=== PATIENT | male | born 1965 | race Caucasian/White ===

== ENCOUNTER 2019-08-07 08:29 | Inpatient (IN) | payer BC, OTHER ==
[~2019-08-07] VITALS: Ht 185.4 cm; Wt 127.9 kg
[2019-08-07] VITALS (38 sets, daily range): BP systolic 129–177; BP diastolic 98–152
[~2019-08-07 08:29] MED LIST: CLONIDINE HCL0.2 MG PO; GABAPENTIN300 MG PO; LASIX40 MG PO; LISINOPRIL-HCT1 EAC1 PO; METOLAZONE5 MG PO; METOPROLOL TART50 MG PO; POTASSIUM CHLO10 ME1 PO
[2019-08-07] MEDS ORDERED: DILTIAZEM HCL 5 MG/ML 5 ML VIAL IV STA ×2 (08:45→11:26)
[2019-08-07] MEDS ORDERED: DILTIAZEM HCL VIAL 5 ML ONE (08:47)
--- NOTE | 2019-08-07 08:57 | NUR ---
second dose of cardizem 10mg ivp per Dr. Ramey hr-130 bp-144/115
[2019-08-07] MEDS ORDERED: CLONIDINE HCL0.3 MG PO (09:20)
[2019-08-07] MEDS ORDERED: ALPRAZOLAM1 MG PO (09:20)
[2019-08-07 09:35] LABS: BASOPHILS # (AUTO) 0.1 (0.0-0.1); BASOPHILS % 0.4 % (0.0-1.0); EOSINOPHILS # (AUTO) 0.1 (0.0-0.4); EOSINOPHILS % 1.2 % (0.0-6.0); HEMATOCRIT 52.1 % (38.2-49.6); HEMOGLOBIN 17.7 g/dL (14.0-18.0); LYMPHOCYTES # (AUTO) 2.4 (1.0-3.2); LYMPHOCYTES % 19.9 % (18.0-39.1); MEAN CORPUSCULAR HEMOGLOBIN 29.5 pg (28-32); MEAN CORPUSCULAR VOLUME 86.7 fL (81-99); MONOCYTES # (AUTO) 1.4 (0.2-0.8); MONOCYTES % 11.4 % (4.4-11.3); NEUTROPHILS % 66.7 % (38.7-80.0); PLATELET COUNT 312 x10e3/uL (140-360); RED BLOOD COUNT 6.01 x10e6/uL (4.3-5.7); RED CELL DISTRIBUTION WIDTH 13.4 % (11.7-14.4)
[2019-08-07] MEDS: CEFEPIME 1GM/NS 0.9% 50 ML 50 ML IV SCH (09:44)
[2019-08-07] MEDS ORDERED: VANCOMYCIN 1GM/NS 250 ML 250 ML IV ONE (10:00)
[2019-08-07 10:04] LABS: ALANINE AMINOTRANSFERASE 29 IU/L (0-55); ALBUMIN/GLOBULIN RATIO 1.3 (0.8-2.0); ALKALINE PHOSPHATASE 69 IU/L (40-150); ANION GAP 12.7 mmol/L (8-16); BLOOD UREA NITROGEN 13 mg/dL (7-26); BUN/CREATININE RATIO 11 (6-25); CALCIUM 9.6 mg/dL (8.4-10.2); CARBON DIOXIDE 33 mmol/L (22-29); CHLORIDE 96 mmol/L (98-107); CREATINE KINASE 107 IU/L (30-200); CREATININE, SERUM 1.15 mg/dL (0.72-1.25); EST GLOMERULAR FILTRATION RATE > 60 ML/MIN (60-); GLUCOSE 132 mg/dL (74-118); SODIUM 139 mmol/L (136-145)
[2019-08-07 10:11] LABS: POTASSIUM 2.7 mmol/L (3.5-5.1)
[2019-08-07] MEDS ORDERED: POTASSIUM CHLORIDE 20 MEQ TAB CR PO ONE ×2 (10:35→11:35)
--- NOTE | 2019-08-07 11:22 | Diagnostic Imaging Report ---
EXAMINATION: CHEST SINGLE (PORTABLE) INDICATION: Atrial fibrillation, shortness of breath COMPARISON: Chest radiograph 09/19/2014 FINDINGS: LINES/TUBES:EKG leads overlie the chest. LUNGS:The lungs are moderately inflated. There is perihilar fullness and indistinctness of the pulmonary vasculature. Mild bibasilar patchy opacities. PLEURA:No pleural effusion or pneumothorax. MEDIASTINUM:Cardiomediastinal silhouette is mildly enlarged. BONES/SOFT TISSUES:No acute osseous injury. ABDOMEN:No free air under the diaphragm. IMPRESSION: Cardiomegaly and pulmonary interstitial edema. Mild bibasilar patchy opacities, most likely subsegmental atelectasis. Signed by: Dayana Archer MD on 08/07/2019 11:19 AM
--- OUTSIDE RECORDS SUMMARY | 2019-08-07 12:19 | XMS REPORT ---
Author Author [facility] Address Unknown Phone Unavailable Care Team Providers Care Seasonal Delivery Driver Name Role Phone TRAVIS ARMSTRONG Unavailable Unavailable Problems This patient has no known problems. Allergies, Adverse Reactions, Alerts This patient has no known allergies or adverse reactions. Medications This patient has no known medications. Results Test Description Test Time Test Comments Text Results Atomic Results Result Comments CHEST SINGLE (PORTABLE) 2019-08-07 11:18:00 [facility] [address] [place] [address] Patient Name: FIONA MAURO MR #: [id number] : 1965 Age/Sex: 54/M Req #: [id number] Adm Physician: Ordered by: TRAVIS ARMSTRONG DO Report #: [id number] Location: ER Room/Bed: Procedure: [id number] DX/CHEST SINGLE (PORTABLE) Exam Date: 08/07/19 Exam Time: 1015 REPORT STATUS: Signed EXAMINATION: CHEST SINGLE (PORTABLE) SATYA CATION: Atrial fibrillation, shortness of breath COMPARISON: Chest radiograph 09/19/2014 FINDINGS: LINES/TUBES:EKG leads overlie the chest. LUNGS:The lungs are moderately inflated. There is perihilar fullness and indistinctness of the pulmonary vasculature. Mild bibasilar patchy opacities. PLEURA:No pleural effusion or pneumothorax. MEDIASTINUM:Cardiomediastinal silhouette is mildly enlarged. BONES/SOFT TISSUES:No acute osseous injury. ABDOMEN:No free air under the diaphragm. IMPRESSION: Cardiomegaly and pulmonary interstitial edema. Mild bibasilar patchy opacities, most likely subsegmental atelectasis. Signed by: Armand Archer MD on 08/07/2019 11:19 AM Dictated By: ARMAND ARCHER MD 111 Transcribed By: CLAIRE on 08/07/191118 COPY TO: TRAVIS ARMSTRONG, DO
--- NOTE | 2019-08-07 13:10 | NUR ---
RCD PT FROM ER BY WHEEL CHAIR PT IS ALERT AND ORIENTED RESTING ON BED
--- NOTE | 2019-08-07 13:15 | NUR ---
BP 164/126 AND HR [address] VALDES TO NOTIFY THAT
--- NOTE | 2019-08-07 13:30 | NUR ---
NOTIFIED THE CHARGE NURSE REGARDING THE CONDITION OF THE PT AND NO DR ANSWERING GARDENIA CALL
--- NOTE | 2019-08-07 13:33 | NUR ---
PAGED DR VILLANUEVA TO NOTIFY THE HR
--- NOTE | 2019-08-07 14:20 | NUR ---
DR VALDES RETURNED THE CALL HE ASKED WHY THE PT IN FLOOR GOT THE ORDER TO TRANSFER ICU
--- NOTE | 2019-08-07 14:21 | NUR ---
LANE WHYTE RETURNED THE CALL AND GOT THE ORDER TO TRANSFER TO ICU AND START CARDIZEM DRIP
[2019-08-07] MEDS ORDERED: DILTIAZEM HCL 125 ML IV STA (14:25)
--- NOTE | 2019-08-07 14:26 | NUR ---
PT TRANSFERRED TO ICU IN SAFE CONDITION
[2019-08-07] MEDS ORDERED: DILTIAZEM HCL 125 ML IV SCH (14:30)
[2019-08-07] MEDS: DILTIAZEM HCL 125 ML IV SCH ×5 (15:00→22:00)
[2019-08-07] MEDS ORDERED: ENOXAPARIN SOD INJ 60 MG/0.6 ML SYR SC SCH (17:00)
[2019-08-07 17:19] LABS: MAGNESIUM 1.7 MG/DL (1.3-2.1)
[2019-08-07 17:30] LABS: ANION GAP 13.3 mmol/L (8-16); BLOOD UREA NITROGEN 13 mg/dL (7-26); BUN/CREATININE RATIO 13 (6-25); CALCIUM 9.4 mg/dL (8.4-10.2); CARBON DIOXIDE 31 mmol/L (22-29); CHLORIDE 99 mmol/L (98-107); CREATININE, SERUM 1.03 mg/dL (0.72-1.25); EST GLOMERULAR FILTRATION RATE > 60 ML/MIN (60-); GLUCOSE 122 mg/dL (74-118); POTASSIUM 3.3 mmol/L (3.5-5.1); SODIUM 140 mmol/L (136-145)
[2019-08-07 17:41] LABS: FREE THYROXINE INDEX 3.4159 (1.4-3.8); THYROID STIMULATING HORMONE 0.356 uIU/mL (0.350-4.940)
[2019-08-07] MEDS ORDERED: POTASSIUM CHLORIDE 20 MEQ TAB CR PO SCH (18:30)
[2019-08-07] MEDS ORDERED: POTASSIUM CHLORIDE 20MEQ/100ML 100 ML IV ONE (18:30)
[2019-08-07] MEDS ORDERED: POTASSIUM CHLORIDE 20 MEQ TAB CR PO NR (20:53)
--- NOTE | 2019-08-07 22:00 | NUR ---
Dr. Prieto notified of high BP, current VS, and on cardizem gtt. New orders received to restart home clonidine med.
[2019-08-07] MEDS ORDERED: CLONIDINE HCL 0.1 MG TAB PO SCH (22:15)
--- NOTE | 2019-08-07 23:52 | Consultation ---
DATE OF CONSULTATION: 08/07/2019 Pulmonary Critical Care Medicine Consult REASON FOR REFERRAL: Critical care. HISTORY OF PRESENT ILLNESS: Mr. Donahue is a pleasant 54-year-old gentleman, who has critical cardiac arrhythmia. The patient presented with some fast and pounding heart rate. The patient was at Dr. Bauman's office, his PCP. The patient had a little bit of feeling that he may pass out. The patient was found to have atrial fibrillation with rapid ventricular rate. 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 The patient stopped using his CPAP as he was worried that this caused an infection that led him to have GBS syndrome. The patient denies excess caffeine or other inciting factors. He is having swelling to his legs that is increasing, 3+ now. PAST MEDICAL HISTORY: Obstructive sleep apnea, not on treatment recently; hypertension; Guillain-Bowen syndrome, Ybarra Rene variant; cranial nerve palsy in 2014. MEDICATIONS: Medication list reviewed per the chart record. Alprazolam, clonidine, Lasix, potassium chloride. ALLERGIES: LABETALOL. SOCIAL HISTORY: No smoking. No drinking. No drugs. 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 Most of his life, he is in [place] and moved to [facility] in 1997. FAMILY HISTORY: Noncontributory to this syndrome. REVIEW OF SYSTEMS: GENERAL: No weight changes. OPHTHALMOLOGIC: No floaters. ENT: No mouth bleeding. ENDOCRINE: No known thyroid disease. PULMONARY: No hemoptysis. CARDIOVASCULAR: No heart attacks. GI: No diarrhea. : No blood in urine. MUSCULOSKELETAL: Moderate arthritis only. NEUROLOGIC: No seizures. PSYCHIATRIC: No depression. PHYSICAL EXAMINATION: VITAL SIGNS: Afebrile, vital signs noted, reviewed per the chart record. Intermittently go back in rapid rate. Now on Cardizem drip. HEENT: Normocephalic and atraumatic. NECK: Supple. Throat midline. LUNGS: Bilateral air entry, decreased at bases, limited. CARDIOVASCULAR: S1 and S2. No murmurs, rubs, or gallops. ABDOMEN: Soft and nontender. EXTREMITIES: No clubbing. No cyanosis. There is 3+ edema. INTEGUMENT: No rash except for the redness and erythema diffusely on his lower extremities, no purpura. GENERAL: He is in bed, talking. LABORATORY DATA: White count 12, hematocrit 52, platelets 312. Potassium was 2.7, , creatinine 1.1. Bicarbonate was 33. Albumin 4.0. TFTs already came back negative. Chest x-ray consistent with edema. IMPRESSION AND PLAN: 1. Pulmonary edema, appears cardiac. 2. Congestive heart failure, under evaluation, not otherwise specified. 3. History of abnormal pulmonary artery caliber on chest radiography, possible pulmonary hypertension. 4. Chronic obstructive sleep apnea, not on treatment. 5. Obesity. 6. History of Guillain-Bowen syndrome, Ybarra Rene variant. 7. Hypertension. 8. Critical hypokalemia. 9. Mild polycythemia, resolved. TFTs were just checked. Correct potassium and magnesium levels. Continue Cardizem drip. The patient may need updated echocardiogram to assess his heart and to decide best treatment for atrial fibrillation. Blood thinners are also reasonable. Thank you very much, Dr. Bauman, for this consult. Please call for questions. MD DUSTIN Gao/ROXI /[id number]
[2019-08-08] VITALS (80 sets, daily range): BP systolic 77–163; BP diastolic 25–133
[2019-08-08 05:38] LABS: BASOPHILS # (AUTO) 0.1 (0.0-0.1); BASOPHILS % 0.4 % (0.0-1.0); EOSINOPHILS # (AUTO) 0.1 (0.0-0.4); EOSINOPHILS % 0.7 % (0.0-6.0); HEMATOCRIT 46.3 % (38.2-49.6); HEMOGLOBIN 15.2 g/dL (14.0-18.0); LYMPHOCYTES # (AUTO) 1.9 (1.0-3.2); LYMPHOCYTES % 14.1 % (18.0-39.1); MEAN CORPUSCULAR HEMOGLOBIN 28.7 pg (28-32); MEAN CORPUSCULAR HGB CONC 32.8 g/dL (31-35); MEAN CORPUSCULAR VOLUME 87.5 fL (81-99); MONOCYTES # (AUTO) 1.6 (0.2-0.8); MONOCYTES % 11.8 % (4.4-11.3); NEUTROPHILS % 72.6 % (38.7-80.0); PLATELET COUNT 287 x10e3/uL (140-360); RED BLOOD COUNT 5.29 x10e6/uL (4.3-5.7); RED CELL DISTRIBUTION WIDTH 13.6 % (11.7-14.4)
[2019-08-08 05:58] LABS: ANION GAP 9.9 mmol/L (8-16); BLOOD UREA NITROGEN 14 mg/dL (7-26); BUN/CREATININE RATIO 13 (6-25); CARBON DIOXIDE 30 mmol/L (22-29); CHLORIDE 102 mmol/L (98-107); CREATININE, SERUM 1.06 mg/dL (0.72-1.25); EST GLOMERULAR FILTRATION RATE > 60 ML/MIN (60-); GLUCOSE 158 mg/dL (74-118); MAGNESIUM 1.7 MG/DL (1.3-2.1); PHOSPHORUS 2.9 MG/DL (2.3-4.7); SODIUM 139 mmol/L (136-145)
[2019-08-08 06:00] LABS: POTASSIUM 2.9 mmol/L (3.5-5.1)
[2019-08-08 06:17] LABS: INR 1.12; PROTHROMBIN TIME 15.1 seconds (11.9-14.5)
--- NOTE | 2019-08-08 06:20 | NUR ---
Dr. Bauman notified of critical potassium. aware of PRN order of potassium and scheduled dose of potassium at 0900. stated no further orders needed.
[2019-08-08] MEDS: POTASSIUM CHLORIDE 20 MEQ TAB CR PO PRN (06:24)
[2019-08-08] MEDS: DILTIAZEM HCL 125 ML IV SCH ×2 (07:05→09:30)
[2019-08-08] MEDS: PANTOPRAZOLE SOD 40 MG TABEC PO SCH ×3 (08:08→18:41)
[2019-08-08] MEDS: FUROSEMIDE INJ 10 MG/ML 4 ML VIAL IV SCH ×2 (08:09→20:51)
[2019-08-08] MEDS: POTASSIUM CHLORIDE 20 MEQ TAB CR PO SCH (08:10)
[2019-08-08] MEDS: MAGNESIUM OXIDE 400 MG TAB PO SCH (08:11)
[2019-08-08] MEDS: METOPROLOL TARTRATE 50 MG TAB PO SCH ×2 (08:30→18:00)
[2019-08-08] MEDS ORDERED: SODIUM CHLORIDE 0.9% 250ML 250 ML ONE (08:36)
[2019-08-08] MEDS ORDERED: CLONIDINE HCL 0.3 MG TAB PO SCH (09:00)
--- NOTE | 2019-08-08 09:14 | Diagnostic Imaging Report ---
EXAM: CHEST SINGLE (PORTABLE) INDICATION: CHF COMPARISON: None IMPRESSION: Lines and hardware: None Heart: Stable cardiomegaly. Lungs and pleura: No focal airspace consolidation. Pulmonary interstitial edema with probable small layering pleural effusions. No pneumothorax. Bones: No acute abnormality. Signed by: Duncan Lozano MD on 08/08/2019 9:11 AM
[2019-08-08] MEDS ORDERED: METOPROLOL TARTRATE 50 MG TAB ONE (09:20)
[2019-08-08] MEDS: ENOXAPARIN SODIUM INJ 100 MG/ML SYR SC SCH ×2 (09:30→20:53)
[2019-08-08] MEDS: CEFEPIME 1GM/NS 0.9% 50 ML 50 ML IV SCH (09:30)
[2019-08-08] MEDS ORDERED: ONDANSETRON HCL INJ 2MG/ML 2ML 2 MG/ML VIAL ONE (10:45)
[2019-08-08] MEDS ORDERED: SODIUM CHLORIDE 0.9% 250ML 250 ML IV SCH (11:45)
--- NOTE | 2019-08-08 11:51 | NUR ---
Pulmonary Critical Care Medicine DATE 08/08/2019 SUBJECTIVE: patient with 10 beats WCT cardizem drip ongoing, was 15 mg / hr. transitioning to PO medications still with edema he agrees to try cpap again REVIEW OF SYSTEMS: NO seizures, no rash PHYSICAL EXAMINATION: VITAL SIGNS: vital signs noted, reviewed per the chart record. GENERAL: calm, ok but got very dizzy once today HEENT: Normocephalic and atraumatic. NECK: Supple. Throat midline. LUNGS: Bilateral air entry, decreased at bases CARDIOVASCULAR: S1 and S2. No murmurs, rubs, or gallops. ABDOMEN: Soft and nontender. EXTREMITIES: No clubbing. No cyanosis. 3+ edema. INTEGUMENT: leg erythema to lower extremities, no purpura. LABORATORY DATA: k 2.9, hco3 30, cr 1.06. wbc 14, hct 46, plt 287. CXR edema again IMPRESSION AND PLAN: 1. Pulmonary edema, cardiac. 2. Congestive heart failure, not otherwise specified. 3. Enlarged pulmonary artery caliber on chest radiography, possible pulmonary hypertension. 4. Chronic obstructive sleep apnea, not on treatment. 5. Obesity. 6. History of Guillain-[place] syndrome, Ybarra Rene variant. 7. Hypertension. 8. Critical hypokalemia. 9. Mild polycythemia, resolved. dc cardizem drip, start beta blockers follow with cardiology echocardiogram ordered anticoagulation for the interim replete more k, follow mg patient agrees to CPAP re-trial Thank you very much, Dr. Bauman, for this consult. Please call for questions.
--- NOTE | 2019-08-08 12:45 | NUR ---
Nutrition Screen Note RD Recommendation for Physician: - Continue current diet Plan of Care: RD following, monitoring for tolerance and adequacy Nutrition reason for involvement: Nutrition Risk Trigger Primary Diagnose(s): atrial fibrillation PMH: HTN, Guillain-[place] syndrome, cranial nerve palsy Ht: 73 in Wt: 303.56 lb BMI: 40 kg/m2 IBW: [address] Assessment: (08/07) 54 YOM admitted for a-fib, seen today per MST screen. Pt reports good appetite and po intake. Pt denies wt loss, reports "dry weight" of 275#- weight gain likely due to fluid shifts as pt has +3 BLE edema currently. Pt denies any N/V/C/D. Pt reports that he does not cook with salt, however that he dines out and eats foods made/prepackaged with higher sodium content. Pt diaphoretic and feeling very dizzy at time of visit, diet education not appropriate at this time. Chart reviewed. Labs and meds reviewed, K replaced. Will continue to monitor. Current Diet: Cardiac Malnutrition Evaluation (08/08/19) The patient does not meet criteria for a specified degree of malnutrition at this time. Will re-evaluate at follow-up as appropriate. Energy intake: does not meet criteria, good intake reported Weight loss: none reported, UBW/"dry wt" of 275# Fat loss: none, chest well developed Muscle loss: none, shoulder round Supporting Evidence: Fluid accumulation: +3 BLE edema Functional Status: not assessed Diet Education Needs Assessment: Diet education not indicated, pt not appropriate at this time. Diet tolerance: tolerating po Nutrition Care Level: Low Signed: Ronda Ruiz RD, LD, [facility]
[2019-08-08] MEDS ORDERED: NOREPINEPHRINE 8 MG/D5W 250 ML 250 ML ONE (13:21)
[2019-08-08 15:24] LABS: CALCIUM 8.7 mg/dL (8.4-10.2); CREATININE, SERUM 1.49 mg/dL (0.72-1.25)
[2019-08-08] MEDS: NOREPINEPHRINE INJ 4MG/4ML 8 MG in DEXTROSE 5% 250ML 250 ML IV SCH (18:45)
--- NOTE | 2019-08-08 19:00 | NUR ---
nursing report given to Heather SERRA
--- NOTE | 2019-08-08 19:59 | NUR ---
new medication po metoprolol 50mg given with 9am medications(clonidine .3mg po not new med for pt also given). cardizem gtt stopped when po bp medications given at 0900am. bp dropped significantly. pt became symptomatic of low blood pressure as his bp has been 150-160/90-110 in icu. diaphoretic, pale, cool, lightheadedness. pt supine. [id number]. 2Lnc added. spoke with dr. altamirano(cardiology)-bolus given 250ml which helped bp and patient felt better. symptoms subsided and returned on and off from [id number]. levo started at 2mcg/min for 2.5hours (stopped at 1600). pt symptoms resolved quickly with start of levophed. pt now in chair and stable. in room with patient all day and is aware. Dr. Altamirano at bedside multiple times through day with patient as well. notified dr. hutton of the day. Dr. Hernandez at bedside when symptoms started and also aware of decrease in bp. Addendum: 08/08/19 at 2008 by Britta Allred RN patient and do not want to restart metoprolol and would like to try different med. this relayed to dr. altamirano .
[2019-08-09] VITALS (19 sets, daily range): BP systolic 120–176; BP diastolic 78–142
--- NOTE | 2019-08-09 00:20 | NUR ---
Report given to Brit SERRA.
--- NOTE | 2019-08-09 03:08 | Progress Note ---
DATE: 08/08/2019 SUBJECTIVE: No major events overnight. OBJECTIVE: VITAL SIGNS: Temperature afebrile, pulse 102, respiratory rate 21, blood pressure is 159/106, saturating 96% on room air. GENERAL: Middle-aged man, in no acute distress. CARDIOVASCULAR: Irregular rate and rhythm. No murmurs, rubs, or gallops. LUNGS: Bibasilar rales. ABDOMEN: Obese, soft, nontender, nondistended. NEURO AND PSYCH: Alert and oriented to person, place, and time. Normal affect. INPATIENT MEDICATIONS: Reviewed. LABORATORY DATA: Reviewed. TELEMETRY DATA: Reviewed, shows atrial fibrillation with RVR. ASSESSMENT: 1. Atrial fibrillation with rapid ventricular response. 2. Acute systolic congestive heart failure exacerbation. PLAN: We will try to add a beta-alexei to achieve better rate control. Continue IV diltiazem drip. Echocardiogram shows severely depressed LVEF. Once he is diuresed and rate controlled will need coronary angiogram to evaluate for CAD. Thank you for this consult. We will continue to follow. MD SHANIA Wong/ROXI /[id number]
--- NOTE | 2019-08-09 03:18 | Consultation ---
DATE OF CONSULTATION: 08/07/2019 Cardiology Consult Note REASON FOR CONSULT: Atrial fibrillation with RVR and acute heart failure exacerbation. HISTORY OF PRESENT ILLNESS: A 54-year-old man with history of Guillain-[place], who presents with worsening shortness of breath, lower extremity edema, was found to be in AFib with RVR. He is supposed to be on CPAP at home, but is not using it per the . History of hypertension, on clonidine. PAST MEDICAL HISTORY: HATITE, hypertension, and Guillain-[place]. MEDICATIONS: Outpatient medications reviewed. ALLERGIES: LABETALOL. SOCIAL HISTORY: Does not smoke, drink, or abuse drugs. FAMILY HISTORY: Noncontributory. REVIEW OF SYSTEMS: As per HPI, otherwise negative. PHYSICAL EXAMINATION: VITAL SIGNS: Temperature afebrile. Vital signs noted, reviewed per the chart record. GENERAL: Middle-aged man, in mild distress. Appeared short of breath, little diaphoretic. CARDIOVASCULAR: Tachycardic, irregular, no murmurs. ABDOMEN: Obese, soft, nontender, and nondistended. EXTREMITIES: 3+ edema bilaterally. Has some changes of chronic venous stasis. INPATIENT MEDICATIONS: Reviewed. LABORATORY DATA: Reviewed. TELEMETRY DATA: Reviewed, shows atrial fibrillation with RVR. ASSESSMENT: 1. Atrial fibrillation with rapid ventricular response. 2. Acute congestive heart failure exacerbation. PLAN: Continue diuresis. Continue diltiazem drip. May start oral medications for rate control as blood pressure tolerates. Echocardiogram is pending. Continue anticoagulation with Lovenox 100 mg b.i.d. Thank you for this consult. We will continue to follow. MD SHANIA Wong/HARJITL /[id number]
[2019-08-09 05:35] LABS: BASOPHILS # (AUTO) 0.1 (0.0-0.1); BASOPHILS % 0.5 % (0.0-1.0); EOSINOPHILS # (AUTO) 0.1 (0.0-0.4); EOSINOPHILS % 0.5 % (0.0-6.0); HEMOGLOBIN 15.5 g/dL (14.0-18.0); LYMPHOCYTES # (AUTO) 2.9 (1.0-3.2); LYMPHOCYTES % 19.8 % (18.0-39.1); MONOCYTES # (AUTO) 1.9 (0.2-0.8); MONOCYTES % 13.2 % (4.4-11.3); NEUTROPHILS # (AUTO) 9.6 (2.1-6.9); NEUTROPHILS % 65.5 % (38.7-80.0); PLATELET COUNT 268 x10e3/uL (140-360); RED BLOOD COUNT 5.34 x10e6/uL (4.3-5.7); RED CELL DISTRIBUTION WIDTH 13.9 % (11.7-14.4)
[2019-08-09 05:59] LABS: ANION GAP 12.2 mmol/L (8-16); CALCIUM 9.1 mg/dL (8.4-10.2); CREATININE, SERUM 1.32 mg/dL (0.72-1.25); MAGNESIUM 1.8 MG/DL (1.3-2.1); POTASSIUM 3.2 mmol/L (3.5-5.1)
[2019-08-09] MEDS: FUROSEMIDE INJ 10 MG/ML 4 ML VIAL IV SCH ×3 (06:23→18:00)
--- NOTE | 2019-08-09 06:49 | Diagnostic Imaging Report ---
EXAMINATION: CHEST SINGLE (PORTABLE) INDICATION: Atrial fibrillation, shortness of breath COMPARISON: Chest radiograph 08/08/2019. FINDINGS: LINES/TUBES:None. LUNGS:The lungs are moderately inflated. Prominence of the pulmonary vasculature bilaterally. PLEURA:No pneumothorax. Bilateral small pleural effusions. MEDIASTINUM:The cardiac silhouette is moderately enlarged. Enlargement of the pulmonary hilum bilaterally. BONES/SOFT TISSUES:No acute osseous injury. ABDOMEN:No free air under the diaphragm. IMPRESSION: Decompensated CHF with bilateral pulmonary congestion unchanged. Signed by: Dr. Ez Galaviz M.D. on 08/09/2019 6:45 AM
[2019-08-09] MEDS: MAGNESIUM OXIDE 400 MG TAB PO SCH (09:00)
[2019-08-09] MEDS ORDERED: CARVEDILOL 3.125 MG TAB PO SCH (09:00)
[2019-08-09] MEDS: PANTOPRAZOLE SOD 40 MG TABEC PO SCH ×2 (09:00→17:00)
[2019-08-09] MEDS: POTASSIUM CHLORIDE 20 MEQ TAB CR PO SCH (09:00)
[2019-08-09] MEDS: ENOXAPARIN SODIUM INJ 100 MG/ML SYR SC SCH ×2 (09:00→20:59)
[2019-08-09] MEDS: CEFEPIME 1GM/NS 0.9% 50 ML 50 ML IV SCH (09:30)
[2019-08-09] MEDS ORDERED: SODIUM CHLORIDE 0.9% 250ML 250 ML IV ONE (11:45)
--- NOTE | 2019-08-09 13:30 | NUR ---
Pulmonary Critical Care Medicine DATE 08/09/2019 SUBJECTIVE: still with intermittent afib HR 130 bpm CXR with minimally less overload used cpap yesterday REVIEW OF SYSTEMS: NO seizures, no rash PHYSICAL EXAMINATION: VITAL SIGNS: vital signs noted, reviewed per the chart record. GENERAL: calm, ok but got very dizzy once today HEENT: Normocephalic and atraumatic. NECK: Supple. Throat midline. LUNGS: Bilateral air entry, decreased at bases CARDIOVASCULAR: S1 and S2. No murmurs, rubs, or gallops. ABDOMEN: Soft and nontender. EXTREMITIES: No clubbing. No cyanosis. 3+ edema. INTEGUMENT: leg erythema to lower extremities, no purpura. LABORATORY DATA: k 3.2, cr 1.32. 15 wbc. plt 268 CXR edema again IMPRESSION AND PLAN: 1. Pulmonary edema, cardiac. 2. Congestive heart failure, acute CHF <20% LVEF 3. Enlarged pulmonary artery caliber on chest radiography, possible pulmonary hypertension. 4. Chronic obstructive sleep apnea 5. Obesity. 6. History of Guillain-[place] syndrome, Ybarra Rene variant. 7. Hypertension. 8. Critical hypokalemia. 9. Mild polycythemia, resolved. continue PO medications for rate control follow with cardiology echocardiogram noted anticoagulation for the interim replete more k, follow mg continue CPAP for HATTIE Thank you very much, Dr. Bauman, for this consult. Please call for questions.
[2019-08-09] MEDS ORDERED: DIGOXIN INJ 0.25 MG/ML 2 ML AMP IV ONE (15:45)
[2019-08-09] MEDS: CARVEDILOL 12.5 MG TAB PO SCH (17:00)
[2019-08-09] MEDS: NOREPINEPHRINE INJ 4MG/4ML 8 MG in DEXTROSE 5% 250ML 250 ML IV SCH (18:45)
--- NOTE | 2019-08-09 19:00 | NUR ---
Bedside report received from Eren Nguyễn RN.
[2019-08-10] VITALS (20 sets, daily range): BP systolic 120–202; BP diastolic 71–129
[2019-08-10] MEDS: FUROSEMIDE INJ 10 MG/ML 4 ML VIAL IV SCH ×4 (00:48→18:45)
[2019-08-10] MEDS: HYDRALAZINE HCL 20 MG/ML VIAL IV PRN ×2 (03:39→06:53)
--- NOTE | 2019-08-10 05:05 | NUR ---
Dr. Bauman present at the bedside and assessing the pt.
[2019-08-10] MEDS ORDERED: DIGOXIN INJ 0.25 MG/ML 2 ML AMP IV SCH (06:00)
[2019-08-10 06:19] LABS: ANION GAP 14.9 mmol/L (8-16); BLOOD UREA NITROGEN 16 mg/dL (7-26); BUN/CREATININE RATIO 15 (6-25); CALCIUM 9.1 mg/dL (8.4-10.2); CARBON DIOXIDE 32 mmol/L (22-29); CHLORIDE 101 mmol/L (98-107); EST GLOMERULAR FILTRATION RATE > 60 ML/MIN (60-); GLUCOSE 148 mg/dL (74-118); MAGNESIUM 1.7 MG/DL (1.3-2.1); SODIUM 145 mmol/L (136-145)
[2019-08-10 06:20] LABS: POTASSIUM 2.9 mmol/L (3.5-5.1)
[2019-08-10] MEDS: POTASSIUM CHLORIDE 20 MEQ TAB CR PO PRN (06:49)
--- NOTE | 2019-08-10 07:00 | NUR ---
Report given to Eren Nguyễn RN.
[2019-08-10] MEDS ORDERED: NORTRIPTYLINE H25 MG PO (07:53)
[2019-08-10] MEDS: POTASSIUM CHLORIDE 20 MEQ TAB CR PO SCH (08:26)
[2019-08-10] MEDS: PANTOPRAZOLE SOD 40 MG TABEC PO SCH ×2 (08:26→17:49)
[2019-08-10] MEDS: CARVEDILOL 12.5 MG TAB PO SCH ×2 (08:26→17:49)
[2019-08-10] MEDS: MAGNESIUM OXIDE 400 MG TAB PO SCH (08:26)
[2019-08-10] MEDS: CEFEPIME 1GM/NS 0.9% 50 ML 50 ML IV SCH (08:26)
[2019-08-10] MEDS: ENOXAPARIN SODIUM INJ 100 MG/ML SYR SC SCH ×2 (08:26→21:47)
[2019-08-10] MEDS ORDERED: NORTRIPTYLINE HCL 25 MG CAP PO PRN (08:30)
[2019-08-10] MEDS: HYDROMORPHONE 1MG/1ML INJ IV PRN ×2 (12:37→17:27)
[2019-08-10] MEDS ORDERED: AMIODARONE HCL 150MG 100 ML IV SCH (12:45)
[2019-08-10] MEDS ORDERED: AMIODARONE HCL 100 ML IV ONE (13:30)
[2019-08-10] MEDS ORDERED: AMIODARONE HCL 360MG 200 ML IV ONE (13:45)
[2019-08-10] MEDS: DILTIAZEM HCL 125 ML IV SCH (14:45)
--- NOTE | 2019-08-10 16:09 | NUR ---
Pulmonary Critical Care Medicine DATE 08/10/2019 SUBJECTIVE: HR 130-160's often stable bp now on lasix q6 is using cpap, but limited sleep due to enuresis 4 L/;min oxygen REVIEW OF SYSTEMS: NO seizures, no rash PHYSICAL EXAMINATION: VITAL SIGNS: vital signs noted, reviewed per the chart record. GENERAL: calm, ok but got very dizzy once today HEENT: Normocephalic and atraumatic. NECK: Supple. Throat midline. LUNGS: Bilateral air entry, decreased at bases CARDIOVASCULAR: S1 and S2. No murmurs, rubs, or gallops. ABDOMEN: Soft and nontender. EXTREMITIES: No clubbing. No cyanosis. 3+ edema. INTEGUMENT: leg erythema, no purpura. LABORATORY DATA: k 3.2, cr 1.32. 15 wbc. plt 268 CXR edema again IMPRESSION AND PLAN: 1. Pulmonary edema, cardiac. 2. Congestive heart failure, acute CHF <20% LVEF 3. Enlarged pulmonary artery caliber on chest radiography, possible pulmonary hypertension. 4. Chronic obstructive sleep apnea 5. Obesity. 6. History of Guillain-[place] syndrome, Ybarra Rene variant. 7. Hypertension. 8. Critical hypokalemia. 9. Mild polycythemia, resolved. continue PO medications for rate control follow with cardiology, may need escalation of therapy echocardiogram noted CXR repeat until clear anticoagulation for the interim replete more k, follow mg continue CPAP for HATTIE Thank you very much, Dr. Bauman, for this consult. Please call for questions.
[2019-08-10] MEDS ORDERED: MAGNESIUM SULF 1GRAM/DEXTROSE 100 ML IV ONE (16:15)
--- NOTE | 2019-08-10 19:00 | NUR ---
Bedside report received from Eren Nguyễn RN.
[2019-08-10] MEDS ORDERED: AMIODARONE HCL 360MG 200 ML IV SCH (20:00)
[2019-08-11] VITALS (26 sets, daily range): BP systolic 130–185; BP diastolic 51–153
[2019-08-11] MEDS: FUROSEMIDE INJ 10 MG/ML 4 ML VIAL IV SCH ×4 (00:08→18:38)
[2019-08-11] MEDS: HYDROMORPHONE 1MG/1ML INJ IV PRN ×4 (00:09→13:50)
--- NOTE | 2019-08-11 04:00 | NUR ---
is present and assessing the pt. Notified him of the pts heart rate, amiodarone gtt, and elevated BP. No new medication orders received. New lab order received CBC, CMP, MAG this AM.
--- NOTE | 2019-08-11 05:23 | Diagnostic Imaging Report ---
EXAMINATION: CHEST SINGLE (PORTABLE) INDICATION: Atrial fibrillation, shortness of breath. CHF. COMPARISON: Chest radiograph 08/09/2019. FINDINGS: LINES/TUBES:None. LUNGS:The lungs are moderately inflated. Prominence of the pulmonary vasculature bilaterally has decreased. PLEURA:No pneumothorax. Bilateral small pleural effusions. MEDIASTINUM:The cardiac silhouette is moderately enlarged. Enlargement of the pulmonary hilum bilaterally. BONES/SOFT TISSUES:No acute osseous injury. ABDOMEN:No free air under the diaphragm. IMPRESSION: Decompensated CHF with bilateral pulmonary congestion mildly improved. Signed by: Dr. Ez Galaviz M.D. on 08/11/2019 5:20 AM
[2019-08-11 05:33] LABS: BASOPHILS # (AUTO) 0.1 (0.0-0.1); BASOPHILS % 0.4 % (0.0-1.0); EOSINOPHILS # (AUTO) 0.2 (0.0-0.4); EOSINOPHILS % 1.4 % (0.0-6.0); HEMATOCRIT 50.7 % (38.2-49.6); HEMOGLOBIN 16.5 g/dL (14.0-18.0); LYMPHOCYTES # (AUTO) 2.1 (1.0-3.2); LYMPHOCYTES % 15.5 % (18.0-39.1); MEAN CORPUSCULAR HGB CONC 32.5 g/dL (31-35); MEAN CORPUSCULAR VOLUME 89.1 fL (81-99); MONOCYTES # (AUTO) 1.7 (0.2-0.8); MONOCYTES % 13.1 % (4.4-11.3); NEUTROPHILS # (AUTO) 9.2 (2.1-6.9); NEUTROPHILS % 69.2 % (38.7-80.0); PLATELET COUNT 272 x10e3/uL (140-360); RED BLOOD COUNT 5.69 x10e6/uL (4.3-5.7); RED CELL DISTRIBUTION WIDTH 13.9 % (11.7-14.4)
[2019-08-11 05:58] LABS: ALANINE AMINOTRANSFERASE 32 IU/L (0-55); ALBUMIN 3.6 g/dL (3.5-5.0); ALBUMIN/GLOBULIN RATIO 1.1 (0.8-2.0); ALKALINE PHOSPHATASE 71 IU/L (40-150); ANION GAP 12.4 mmol/L (8-16); BLOOD UREA NITROGEN 13 mg/dL (7-26); BUN/CREATININE RATIO 12 (6-25); CARBON DIOXIDE 33 mmol/L (22-29); CHLORIDE 98 mmol/L (98-107); CREATININE, SERUM 1.09 mg/dL (0.72-1.25); EST GLOMERULAR FILTRATION RATE > 60 ML/MIN (60-); GLUCOSE 139 mg/dL (74-118); POTASSIUM 3.4 mmol/L (3.5-5.1); SODIUM 140 mmol/L (136-145)
[2019-08-11] MEDS: POTASSIUM CHLORIDE 20 MEQ TAB CR PO PRN (06:34)
[2019-08-11] MEDS: HYDRALAZINE HCL 20 MG/ML VIAL IV PRN ×2 (06:34→16:51)
[2019-08-11] MEDS: PANTOPRAZOLE SOD 40 MG TABEC PO SCH ×2 (07:34→16:34)
[2019-08-11] MEDS: CARVEDILOL 12.5 MG TAB PO SCH ×2 (08:50→16:34)
[2019-08-11] MEDS: ENOXAPARIN SODIUM INJ 100 MG/ML SYR SC SCH ×2 (08:51→20:08)
[2019-08-11] MEDS: CEFEPIME 1GM/NS 0.9% 50 ML 50 ML IV SCH (08:51)
[2019-08-11] MEDS: POTASSIUM CHLORIDE 20 MEQ TAB CR PO SCH (08:51)
[2019-08-11] MEDS: MAGNESIUM OXIDE 400 MG TAB PO SCH (08:51)
[2019-08-11] MEDS: ONDANSETRON HCL INJ 2MG/ML 2ML 2 MG/ML VIAL IV PRN ×2 (09:06→14:00)
[2019-08-11] MEDS: DIGOXIN 0.125 MG TAB PO SCH (10:00)
[2019-08-11] MEDS: AMIODARONE HCL 200 MG TAB PO SCH ×2 (10:00→16:33)
--- NOTE | 2019-08-11 22:03 | NUR ---
Pulmonary Critical Care Medicine DATE 08/11/2019 SUBJECTIVE: decreased leg edema leg pains though emesis x2 CPAP used with some successs REVIEW OF SYSTEMS: NO seizures, no rash PHYSICAL EXAMINATION: VITAL SIGNS: vital signs noted, reviewed per the chart record. GENERAL: calm, ok but got very dizzy once today HEENT: Normocephalic and atraumatic. NECK: Supple. Throat midline. LUNGS: Bilateral air entry, decreased at bases CARDIOVASCULAR: S1 and S2. No murmurs, rubs, or gallops. ABDOMEN: Soft and nontender. EXTREMITIES: No clubbing. No cyanosis. 3+ edema. INTEGUMENT: leg erythema, no purpura. LABORATORY DATA: k 3.4, cr 1.1. wbc 13, hct 51, plt 272 CXR edema again mildly improved IMPRESSION AND PLAN: 1. Pulmonary edema, cardiac. Slowly improving 2. Congestive heart failure, acute CHF <20% LVEF 3. Enlarged pulmonary artery caliber on chest radiography, possible pulmonary hypertension. 4. Chronic obstructive sleep apnea 5. Obesity. 6. History of Guillain-[place] syndrome, Ybarra Rene variant. 7. Hypertension. 8. Critical hypokalemia. 9. Mild polycythemia, resolved. continue PO medications for rate control follow with cardiology echocardiogram noted CXR repeat until clear anticoagulation for the interim replete more k, follow mg continue CPAP for HATTIE Thank you very much, Dr. Bauman, for this consult. Please call for questions.
[2019-08-12] VITALS (26 sets, daily range): BP systolic 126–177; BP diastolic 59–128
--- NOTE | 2019-08-12 | Progress Note ---
DATE: 08/11/2019 Cardiology Progress Note SUBJECTIVE: No major events overnight. Heart rate remains slightly elevated. The patient says his pain is much improved on Dilaudid. OBJECTIVE: VITAL SIGNS: Temperature afebrile, pulse is 100, respiratory rate 18, blood pressure 133/51, and saturating 99% on room air. GENERAL: Well developed, well nourished, no acute distress. CARDIOVASCULAR: Irregular rate and rhythm. No murmurs, rubs, or gallops. LUNGS: Clear to auscultation anteriorly. Decreased breath sounds at bilateral bases. ABDOMEN: Obese, soft, nontender, nondistended. EXTREMITIES: Warm, well perfused, 2+ pitting edema. Chronic venous stasis changes. NEUROLOGIC AND PSYCH: Alert and oriented to person, place, and time. Normal affect. INPATIENT MEDICATIONS: Reviewed. LABORATORY DATA: Reviewed. TELEMETRY DATA: Reviewed, shows atrial fibrillation with RVR. ASSESSMENT: 1. Acute systolic heart failure exacerbation. EF less than 20%. 2. Atrial fibrillation with rapid ventricular response. 3. Hypertension. PLAN: We will up titrate carvedilol to 6.25 b.i.d. We will add digoxin and optimize heart failure medications by adding Entresto. Continue diuretics and potassium supplementation as needed. Plan for coronary angiogram likely Wednesday. We will order a LifeVest in preparation for possible discharge this next week. Thank you for this consult. We will continue to follow. MD PENELOPE WongP/MODL /[id number] cc: Duran Bauman MD
--- NOTE | 2019-08-12 00:20 | Progress Note ---
DATE: 08/10/2019 Cardiology Progress Note SUBJECTIVE: Heart rate remains uncontrolled, complaining about pain in his legs. No chest pain. Readings improved. OBJECTIVE: VITAL SIGNS: Temperature afebrile, pulse 113, respiratory rate 21, blood pressure 149/109, saturating 97% on nasal cannula. GENERAL: Well-developed, well-nourished, in no acute distress. CARDIOVASCULAR: Irregular rate and rhythm. Tachycardic. No murmurs. LUNGS: Decreased breath sounds in bilateral bases. ABDOMEN: Obese, soft, nontender, nondistended. EXTREMITIES: Warm, well perfused. Chronic venous stasis changes bilaterally with 2+ pitting edema. NEURO AND PSYCH: Alert and oriented to person, place, and time. Normal affect. INPATIENT MEDICATIONS: Reviewed. LABORATORY DATA: Reviewed. TELEMETRY DATA: Reviewed, shows AFib with RVR. ASSESSMENT: 1. Acute systolic heart failure exacerbation. EF less than 20%. 2. Atrial fibrillation with rapid ventricular response. PLAN: We will start IV amiodarone, up-titrate carvedilol to 6.25. Continue full-dose Lovenox. Continue diuretic with IV Lasix. Once the patient is more euvolemic and heart rate better controlled, plan for coronary angiogram prior to discharge. Thank you for this consult. We will continue to follow. MD SHANIA Wong/ROXI /[id number]
[2019-08-12] MEDS: ONDANSETRON HCL INJ 2MG/ML 2ML 2 MG/ML VIAL IV PRN ×3 (01:48→20:00)
[2019-08-12] MEDS: HYDROMORPHONE 1MG/1ML INJ IV PRN ×3 (01:48→20:00)
[2019-08-12] MEDS: FUROSEMIDE INJ 10 MG/ML 4 ML VIAL IV SCH ×4 (06:23→18:48)
[2019-08-12] MEDS: AMIODARONE HCL 200 MG TAB PO SCH ×2 (08:07→16:36)
[2019-08-12] MEDS: MAGNESIUM OXIDE 400 MG TAB PO SCH (08:08)
[2019-08-12] MEDS: PANTOPRAZOLE SOD 40 MG TABEC PO SCH ×2 (08:08→16:36)
[2019-08-12] MEDS: POTASSIUM CHLORIDE 20 MEQ TAB CR PO SCH (08:08)
[2019-08-12] MEDS: ENOXAPARIN SODIUM INJ 100 MG/ML SYR SC SCH ×2 (08:08→20:44)
[2019-08-12] MEDS: CARVEDILOL 12.5 MG TAB PO SCH ×2 (08:08→16:36)
[2019-08-12] MEDS: DIGOXIN 0.125 MG TAB PO SCH (08:08)
[2019-08-12] MEDS ORDERED: VALSARTAN/SACUBITRIL 24MG/26MG 1 EA TAB PO SCH (09:00)
[2019-08-12] MEDS ORDERED: SPIRONOLACTONE 25 MG TAB PO SCH (09:00)
--- NOTE | 2019-08-12 09:00 | NUR ---
new medication education given for entresto and spironolactone
[2019-08-12] MEDS: CEFEPIME 1GM/NS 0.9% 50 ML 50 ML IV SCH (09:06)
--- NOTE | 2019-08-12 10:26 | Progress Note ---
DATE: 08/12/2019 Cardiology Progress Note SUBJECTIVE: The patient states that he feels much better. His shortness of breath and also swelling is much improved. Denies any chest pain or palpitations. OBJECTIVE: VITAL SIGNS: Temperature 98.2, pulse 106, respiratory rate 18, blood pressure 159/101, oxygen saturation not reported. GENERAL: Alert and oriented x3, resting comfortably in the chair, does not appear to be in any acute distress. NECK: Supple. No JVD noted. CARDIOVASCULAR: Regular rate and rhythm. No murmurs, no gallops. LUNGS: Diminished breath sounds posterior lower lobes, otherwise clear to auscultation. ABDOMEN: Soft, nontender. EXTREMITIES: Lower extremity, 2+ pitting edema. CARDIAC MEDICATIONS: 1. Entresto one tablet by mouth p.o. b.i.d. 2. Digoxin 0.125 mg p.o. daily. 3. Coreg 6.25 mg p.o. b.i.d. 4. Lovenox 100 mg subcu q.12 hours. 5. Potassium chloride 40 mEq p.o. daily. 6. Spironolactone 25 mg p.o. daily. 7. Amiodarone 400 mg p.o. b.i.d. 8. Lasix 40 mg q.6 hours IV. LABORATORY DATA: No new labs today. TELEMETRY: Atrial fibrillation, rate controlled. ASSESSMENT: 1. Acute systolic heart failure with exacerbation, ejection fraction is less than 20%. 2. Atrial fibrillation with rapid ventricular response, better rate control this morning. PLAN: Continue with the above-listed cardiac medications. We will up titrate Entresto and also spironolactone dose given poor blood pressure control this morning. At this time, patient appears to be euvolemic and heart rate is improved. Plan for coronary angiogram prior to this discharge. We will continue to follow this patient very closely. MD STEVEN Luu/HARJITL /[id number]
--- NOTE | 2019-08-12 14:54 | NUR ---
Pulmonary Critical Care Medicine DATE SUBJECTIVE: decreased leg edema CPAP used for 6 hrs last night subjective improvement on CPAP RA fio2, 95% saturation REVIEW OF SYSTEMS: NO seizures, no rash PHYSICAL EXAMINATION: VITAL SIGNS: vital signs noted, reviewed per the chart record. GENERAL: calm, ok but got very dizzy once today HEENT: Normocephalic and atraumatic. NECK: Supple. Throat midline. LUNGS: Bilateral air entry, decreased at bases CARDIOVASCULAR: S1 and S2. No murmurs, rubs, or gallops. ABDOMEN: Soft and nontender. EXTREMITIES: No clubbing. No cyanosis. 3+ edema. INTEGUMENT: leg erythema, no purpura. LABORATORY DATA: no new updates IMPRESSION AND PLAN: 1. Pulmonary edema, cardiac. Slowly improving 2. Congestive heart failure, acute CHF <20% LVEF 3. Enlarged pulmonary artery caliber on chest radiography, possible pulmonary hypertension. 4. Chronic obstructive sleep apnea 5. Obesity. 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 7. Hypertension. 8. Critical hypokalemia. 9. Mild polycythemia, resolved. continue PO medications for rate control follow with cardiology echocardiogram noted CXR repeat until clear, next C XR tomorrow anticoagulation for the interim recheck lytes in AM continue CPAP for HATTIE Thank you very much, Dr. Bauman, for this consult. Please call for questions.
[2019-08-12] MEDS: VALSARTAN/SACUBITRIL 24MG/26MG 1 EA TAB PO SCH (16:44)
--- NOTE | 2019-08-12 17:43 | Progress Note ---
DATE: 08/12/2019 Pulmonary Medicine Progress Note ADDENDUM: Mr. Donahue continues with slow progress. As he was able to use CPAP with good response yesterday, he does start to feel better about his ability to be adherent. I discussed with him about outpatient sleep study and due to the fluid overload and cardiomyopathy, he would be recommended for inpatient sleep study. We will consider the timing of sleep studies based on the current pandemic going on and need for cautions; however, it is reasonable to try to get him a sleep study sooner than later given his cardiomyopathy. We will follow along closely. MD DUSTIN Gao/ROXI /[id number]
[2019-08-13] VITALS (25 sets, daily range): BP systolic 111–179; BP diastolic 64–136
[2019-08-13] MEDS: FUROSEMIDE INJ 10 MG/ML 4 ML VIAL IV SCH ×4 (00:15→17:19)
[2019-08-13] MEDS: HYDROMORPHONE 1MG/1ML INJ IV PRN ×4 (02:43→23:10)
[2019-08-13] MEDS: ONDANSETRON HCL INJ 2MG/ML 2ML 2 MG/ML VIAL IV PRN ×4 (02:43→23:10)
--- NOTE | 2019-08-13 05:00 | Diagnostic Imaging Report ---
EXAMINATION: CHEST SINGLE (PORTABLE) INDICATION: Atrial fibrillation. CHF. COMPARISON: Chest radiograph 08/11/2019. FINDINGS: LINES/TUBES:None. LUNGS: Prominence of the pulmonary vasculature bilaterally is unchanged. Increased density in the lower lobes, right and left likely atelectasis. PLEURA:No pneumothorax. Bilateral small pleural effusions. MEDIASTINUM:The cardiac silhouette is moderately enlarged. Enlargement of the pulmonary hilum bilaterally. BONES/SOFT TISSUES:No acute osseous injury. ABDOMEN:No free air under the diaphragm. IMPRESSION: 1. Stable bilateral pulmonary venous congestion. 2. Bibasilar atelectasis. Signed by: Dr. Ez Galaviz M.D. on 08/13/2019 4:57 AM
[2019-08-13 05:40] LABS: ANION GAP 12.2 mmol/L (8-16); BLOOD UREA NITROGEN 13 mg/dL (7-26); BUN/CREATININE RATIO 14 (6-25); CALCIUM 8.9 mg/dL (8.4-10.2); CARBON DIOXIDE 33 mmol/L (22-29); CHLORIDE 101 mmol/L (98-107); CREATININE, SERUM 0.96 mg/dL (0.72-1.25); EST GLOMERULAR FILTRATION RATE > 60 ML/MIN (60-); GLUCOSE 111 mg/dL (74-118); MAGNESIUM 1.9 MG/DL (1.3-2.1); POTASSIUM 3.2 mmol/L (3.5-5.1); SODIUM 143 mmol/L (136-145)
[2019-08-13] MEDS: POTASSIUM CHLORIDE 20 MEQ TAB CR PO PRN (06:52)
--- NOTE | 2019-08-13 07:24 | Progress Note ---
DATE: 08/13/2019 SUBJECTIVE: The patient did well overnight. No new issues. He feels like he is breathing a little bit better. OBJECTIVE: VITAL SIGNS: Temperature 97.9, pulse 90, blood pressure 161/96, and sats 93%. GENERAL: No apparent distress. Sitting up in bed. CARDIOVASCULAR: Irregularly irregular. LUNGS: Decreased breath sounds bilaterally. ABDOMEN: Good bowel sounds. Soft, nontender. EXTREMITIES: No clubbing, cyanosis. Still has 2+ to 3+ edema with less redness. NEUROLOGIC: Nonfocal. ASSESSMENT AND PLAN: 1. Atrial fibrillation. Continue with current care per Cardiology. 2. Hypertension. Continue current care. Hopefully, the adjustments we are making are going to improve on his blood pressure. 3. Hypokalemia. We will check his labs. 4. Leukocytosis. Check a CBC. 5. Acute systolic heart failure. Continue with current care. The patient seemed to be improving. The patient is scheduled for heart catheterization tomorrow. Please see hospital chart for full details. MD MIRANDA Vicente/ROXI /[id number]
[2019-08-13] MEDS: AMIODARONE HCL 200 MG TAB PO SCH ×2 (09:00→17:19)
[2019-08-13] MEDS: CARVEDILOL 12.5 MG TAB PO SCH ×2 (09:00→17:19)
[2019-08-13] MEDS: MAGNESIUM OXIDE 400 MG TAB PO SCH (09:00)
[2019-08-13] MEDS: PANTOPRAZOLE SOD 40 MG TABEC PO SCH ×2 (09:00→17:19)
[2019-08-13] MEDS: VALSARTAN/SACUBITRIL 24MG/26MG 1 EA TAB PO SCH ×2 (09:00→17:19)
[2019-08-13] MEDS: DIGOXIN 0.125 MG TAB PO SCH (09:00)
[2019-08-13] MEDS: SPIRONOLACTONE 25 MG TAB PO SCH (09:00)
[2019-08-13] MEDS: POTASSIUM CHLORIDE 20 MEQ TAB CR PO SCH (09:00)
[2019-08-13] MEDS: CEFEPIME 1GM/NS 0.9% 50 ML 50 ML IV SCH (10:21)
[2019-08-13] MEDS: ENOXAPARIN SODIUM INJ 100 MG/ML SYR SC SCH ×2 (10:21→21:00)
[2019-08-13] MEDS: HYDRALAZINE HCL 20 MG/ML VIAL IV PRN ×2 (10:22→22:20)
--- NOTE | 2019-08-13 10:25 | Progress Note ---
DATE: 08/13/2019 Cardiology Progress Note SUBJECTIVE: The patient is without any new complaints this morning. He states he feels much better. He is even able to lay down flat in the bed without any complaints of shortness of breath. He denies any chest pain or palpitations. OBJECTIVE: VITAL SIGNS: Temperature 98.5, pulse 103, respiratory rate 16, blood pressure 156/107, oxygen saturation 93% on room air. GENERAL: Alert and oriented x3. Resting comfortably in the chair. Does not appear to be in any acute distress. NECK: No JVD noted. Supple. CARDIOVASCULAR: Irregular rate and rhythm. No murmurs, no gallops. LUNGS: Diminished breath sounds throughout. ABDOMEN: Round and nontender. LOWER EXTREMITIES: 2+ pitting edema. CARDIOVASCULAR MEDICATIONS: Entresto two tablets p.o. b.i.d., spironolactone 50 mg p.o. daily, amiodarone 400 mg p.o. b.i.d., digoxin 0.125 mg p.o. daily, carvedilol 6.25 mg p.o. b.i.d., potassium chloride 40 mEq p.o. daily, magnesium oxide 400 mg p.o. daily, q.6 hours 40 mg IV Lasix and Lovenox 100 mg subcu q.12. LABORATORY DATA: Sodium 143, potassium 3.2, BUN 13, creatinine 0.96. TELEMETRY: Atrial fibrillation. ASSESSMENT: 1. Acute systolic heart failure with exacerbation, ejection fraction less than 20%. 2. Atrial fibrillation with rapid ventricular response, rate is improving. 3. Hypertension. PLAN: Continue the above listed cardiac medication. We will titrate beta-alexei today. Monitor blood pressure closely. Utilize IV hydralazine as needed. At this time, patient appears to be euvolemic and heart failure is medically managed. Plans for coronary angiogram tomorrow and prior to discharge. We will continue to monitor this patient very closely. Dictated by Angelique Rogers NP Oleg Prieto MD JWV/MODL /[id number]
--- NOTE | 2019-08-13 12:35 | NUR ---
assisted patient to shower. tolerated well. all linen changed
--- NOTE | 2019-08-13 16:42 | NUR ---
Pulmonary Critical Care Medicine DATE 08/13/2019 SUBJECTIVE: decreased leg edema slowly CPAP used, (+) subjective improvement on CPAP k low eating CXR improving fluid overload REVIEW OF SYSTEMS: NO seizures, no rash PHYSICAL EXAMINATION: VITAL SIGNS: vital signs noted, reviewed per the chart record. GENERAL: calm, ok but got very dizzy once today HEENT: Normocephalic and atraumatic. NECK: Supple. Throat midline. LUNGS: Bilateral air entry, decreased at bases CARDIOVASCULAR: S1 and S2. No murmurs, rubs, or gallops. ABDOMEN: Soft and nontender. EXTREMITIES: No clubbing. No cyanosis. 3+ edema. INTEGUMENT: leg erythema, no purpura. LABORATORY DATA: k 3.2. cr 0.96. IMPRESSION AND PLAN: 1. Pulmonary edema, cardiac. Slowly improving 2. Congestive heart failure, acute CHF <20% LVEF 3. Enlarged pulmonary artery caliber on chest radiography, possible pulmonary hypertension. 4. Chronic obstructive sleep apnea 5. Obesity. 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 7. Hypertension. 8. Critical hypokalemia. 9. Mild polycythemia, resolved. continue PO medications for rate control follow with cardiology echocardiogram noted CXR repeat until clear anticoagulation for the interim recheck lytes in AM continue CPAP for [facility] tomorrow fix k Thank you very much, Dr. Bauman, for this consult. Please call for questions.
[2019-08-14] VITALS (15 sets, daily range): BP systolic 114–164; BP diastolic 72–114
[2019-08-14] MEDS: FUROSEMIDE INJ 10 MG/ML 4 ML VIAL IV SCH ×5 (00:01→23:33)
[2019-08-14] MEDS: ONDANSETRON HCL INJ 2MG/ML 2ML 2 MG/ML VIAL IV PRN ×2 (03:01→20:45)
[2019-08-14] MEDS: HYDROMORPHONE 1MG/1ML INJ IV PRN ×4 (03:01→20:46)
[2019-08-14] MEDS: HYDRALAZINE HCL 20 MG/ML VIAL IV PRN (05:25)
[2019-08-14] MEDS: CARVEDILOL 12.5 MG TAB PO SCH ×2 (06:04→16:23)
[2019-08-14] MEDS: DIGOXIN 0.125 MG TAB PO SCH (06:04)
[2019-08-14] MEDS: AMIODARONE HCL 200 MG TAB PO SCH ×2 (06:04→16:17)
[2019-08-14] MEDS: SPIRONOLACTONE 25 MG TAB PO SCH (07:50)
[2019-08-14] MEDS: VALSARTAN/SACUBITRIL 24MG/26MG 1 EA TAB PO SCH ×2 (07:50→16:23)
[2019-08-14 08:25] LABS: BASOPHILS # (AUTO) 0.1 (0.0-0.1); BASOPHILS % 0.6 % (0.0-1.0); EOSINOPHILS # (AUTO) 0.1 (0.0-0.4); EOSINOPHILS % 1.1 % (0.0-6.0); HEMATOCRIT 54.7 % (38.2-49.6); HEMOGLOBIN 17.9 g/dL (14.0-18.0); LYMPHOCYTES # (AUTO) 1.4 (1.0-3.2); LYMPHOCYTES % 12.2 % (18.0-39.1); MEAN CORPUSCULAR HEMOGLOBIN 28.9 pg (28-32); MEAN CORPUSCULAR HGB CONC 32.7 g/dL (31-35); MEAN CORPUSCULAR VOLUME 88.4 fL (81-99); MONOCYTES # (AUTO) 1.5 (0.2-0.8); MONOCYTES % 13.1 % (4.4-11.3); NEUTROPHILS # (AUTO) 8.2 (2.1-6.9); NEUTROPHILS % 72.6 % (38.7-80.0); PLATELET COUNT 270 x10e3/uL (140-360); RED BLOOD COUNT 6.19 x10e6/uL (4.3-5.7)
--- NOTE | 2019-08-14 08:45 | NUR ---
Patient to [facility] Operator via bed, report to MARYSE Mark.
[2019-08-14 08:52] LABS: BLOOD UREA NITROGEN 14 mg/dL (7-26); BUN/CREATININE RATIO 13 (6-25); CALCIUM 9.4 mg/dL (8.4-10.2); CARBON DIOXIDE 30 mmol/L (22-29); CHLORIDE 101 mmol/L (98-107); CREATININE, SERUM 1.05 mg/dL (0.72-1.25); EST GLOMERULAR FILTRATION RATE > 60 ML/MIN (60-); GLUCOSE 134 mg/dL (74-118); SODIUM 142 mmol/L (136-145)
[2019-08-14 08:55] LABS: INR 0.96; PROTHROMBIN TIME 13.3 seconds (11.9-14.5)
[2019-08-14] MEDS ORDERED: FENTANYL CITRATE/PF 100MCG/2 ML INJ ONE (09:00)
[2019-08-14] MEDS ORDERED: HEPARIN SOD/SOD CHLORIDE 2,000 ML ONE (09:00)
[2019-08-14] MEDS: ENOXAPARIN SODIUM INJ 100 MG/ML SYR SC SCH (09:00)
[2019-08-14] MEDS ORDERED: SODIUM CHLORIDE 0.9% 1000ML 1,000 ML ONE (09:00)
[2019-08-14] MEDS ORDERED: IOPAMIDOL 370 MG/ML 200 ML INFUS..BTL INJ ONE (09:00)
[2019-08-14] MEDS ORDERED: LIDOCAINE HCL 2% LOCAL 20 ML VIAL ONE (09:00)
[2019-08-14] MEDS ORDERED: MIDAZOLAM HCL 2 MG/2 ML VIAL ONE (09:00)
[2019-08-14] MEDS ORDERED: VERAPAMIL HCL 2.5 MG/ML 2 ML VIAL ONE (09:00)
[2019-08-14 09:05] LABS: MAGNESIUM 1.9 MG/DL (1.3-2.1); PHOSPHORUS 2.6 MG/DL (2.3-4.7)
--- NOTE | 2019-08-14 09:39 | NUR ---
Patient to Room 195 via bed; right radial TR band in place; pulse Ox reads 95% on right hand. Patient with no present concerns. VSS.
[2019-08-14] MEDS: PANTOPRAZOLE SOD 40 MG TABEC PO SCH ×2 (10:29→16:23)
[2019-08-14] MEDS: MAGNESIUM OXIDE 400 MG TAB PO SCH (10:29)
[2019-08-14] MEDS: CEFEPIME 1GM/NS 0.9% 50 ML 50 ML IV SCH (10:29)
[2019-08-14] MEDS: POTASSIUM CHLORIDE 20 MEQ TAB CR PO SCH (10:29)
--- NOTE | 2019-08-14 10:34 | Operative Report ---
DATE OF PROCEDURE: 08/14/2019 SURGEON: Robin Pepper MD INDICATION FOR PROCEDURE: CHF. PREPROCEDURE ASSESSMENT: The risks, benefits, and alternatives to the treatment were explained to the patient prior to the procedure. Informed consent was obtained and documented in the medical record. The patient was deemed to be an appropriate candidate for moderate sedation. MEDICATIONS: Please see nursing notes for medications administered throughout the procedure. PROCEDURES PERFORMED: 1. Coronary angiography, right radial approach. 2. Left heart catheterization. 3. LV angiography. PROCEDURE DETAILS: The patient ws brought to the cardiac catheterization laboratory in a fasting state. Right wrist was prepped and draped in a sterile fashion. A 6-Icelandic slender sheath was inserted in the right radial artery using modified Seldinger technique. Coronary angiography was performed using 5-Icelandic Vida radial catheter. Left heart catheterization and LV angiography were performed using a 6-Icelandic angled pigtail catheter. All catheters were removed over a wire and multiple orthogonal views were taken of each coronary artery. Access site was closed using a TR band. There were no immediate complications. SIGNIFICANT FINDINGS: Left main coronary artery; large caliber and no significant CAD. LAD; large caliber, goes to the apex, one large diagonal branch, luminal irregularities only. Left circumflex; large codominant left circumflex with one OM branch that is significant and distal PL branches. Luminal irregularities only. RCA; large codominant RCA, large RPDA distally, about 28% to 30% plaque in the distal RCA, otherwise no significant CAD. Left heart catheterization demonstrated LV end-diastolic pressure of 17. LV ejection fraction by LV angiography was about 45%. GRAFTS AND IMPLANTS: None. SPECIMEN REMOVED: None. COMPLICATIONS: None. ESTIMATED BLOOD LOSS: 10 mL. FINAL RECOMMENDATIONS: 1. Continue optimal medical therapy and risk factor control. 2. Follow up in clinic 2 weeks post discharge. Thank you for this consult. We will continue to follow. Robin Pepper MD KVP/MODL /[id number]
[2019-08-14 10:36] LABS: PARTIAL THROMBOPLASTIN TIME 26.7 seconds (23.8-35.5)
--- NOTE | 2019-08-14 12:45 | Progress Note ---
DATE: 08/14/2019 Cardiology Progress Note SUBJECTIVE: Patient is lethargic and received sedation. No active events. OBJECTIVE: VITAL SIGNS: Temperature is 98.2, heart rate ranges from 82 to 108, respirations are 20, blood pressure is 133/95, oxygen saturation is 95% on room air. GENERAL: Well appearing, lethargic, no apparent distress. CARDIOVASCULAR: Irregularly irregular. LUNGS: Clear to auscultation. ABDOMEN: Soft, nontender, nondistended. EXTREMITIES: No clubbing, cyanosis, or edema. CARDIOVASCULAR MEDICATIONS: Reviewed. LABORATORY DATA: Reviewed. Creatinine is 1.05. Telemetry monitoring was reviewed by myself and shows atrial fibrillation with episodes of rapid ventricular response. Cardiac catheterization revealed no significant coronary artery disease. ASSESSMENT: 1. Systolic congestive heart failure. 2. Atrial fibrillation. 3. Hypertension. 4. Obesity. PLAN: RECOMMENDATIONS: Continue current cardiovascular medications. Continue optimal medical therapy for his heart failure. No intervention was required as he was found to have no significant coronary artery disease. Continue anticoagulation given his atrial fibrillation. As long as his vital signs remained stable, he may be discharged from a cardiovascular standpoint. Arie Becerril DO BM/HARJITL /[id number]
--- NOTE | 2019-08-14 13:15 | NUR ---
Pulmonary Critical Care Medicine DATE 08/14/2019 SUBJECTIVE: RA fio2 97% saturation CPAP some use, but urinated too much to consolidate sleep heart catheterization was reported 'normal' REVIEW OF SYSTEMS: NO seizures, no rash PHYSICAL EXAMINATION: VITAL SIGNS: vital signs noted, reviewed per the chart record. GENERAL: calm, NAD HEENT: Normocephalic and atraumatic. NECK: Supple. Throat midline. LUNGS: Bilateral air entry, decreased at bases CARDIOVASCULAR: S1 and S2. No murmurs, rubs, or gallops. ABDOMEN: Soft and nontender. EXTREMITIES: No clubbing. No cyanosis. 2+ edema. INTEGUMENT: leg erythema, no purpura. LABORATORY DATA: k 4.0, cr 1.05. wbc 11, hct 54, plt 270 IMPRESSION AND PLAN: 1. Pulmonary edema, cardiac. Slowly improving 2. Congestive heart failure, acute CHF <20% LVEF 3. Enlarged pulmonary artery caliber on chest radiography, possible pulmonary hypertension. 4. Chronic obstructive sleep apnea 5. Obesity. 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 7. Hypertension. 8. Critical hypokalemia. 9. Mild polycythemia, resolved. continue PO medications for rate control, anticoagulation if indicated follow with cardiology CXR repeat intermittently until clear recheck lytes in AM continue CPAP for [facility] today Thank you very much, Dr. Bauman, for this consult. Please call for questions.
[2019-08-15] MEDS: HYDROMORPHONE 1MG/1ML INJ IV PRN ×3 (00:50→09:19)
[2019-08-15 03:00] VITALS: BP 154/105
[2019-08-15] MEDS: FUROSEMIDE INJ 10 MG/ML 4 ML VIAL IV SCH ×2 (05:32→11:47)
[2019-08-15] MEDS: ONDANSETRON HCL INJ 2MG/ML 2ML 2 MG/ML VIAL IV PRN (05:38)
--- NOTE | 2019-08-15 06:04 | NUR ---
DR VALDES STATES THAT PATIENT IS OKAY FOR DISCHARGE WHEN CLEARED BY CARDIOLOGY
[2019-08-15] MEDS: SPIRONOLACTONE 25 MG TAB PO SCH (07:22)
[2019-08-15] MEDS: VALSARTAN/SACUBITRIL 24MG/26MG 1 EA TAB PO SCH (07:22)
[2019-08-15] MEDS: DIGOXIN 0.125 MG TAB PO SCH (07:22)
[2019-08-15] MEDS: CARVEDILOL 12.5 MG TAB PO SCH (07:22)
[2019-08-15] MEDS: AMIODARONE HCL 200 MG TAB PO SCH (07:22)
[2019-08-15] MEDS: POTASSIUM CHLORIDE 20 MEQ TAB CR PO SCH (07:22)
[2019-08-15] MEDS: CEFEPIME 1GM/NS 0.9% 50 ML 50 ML IV SCH (07:23)
[2019-08-15] MEDS: PANTOPRAZOLE SOD 40 MG TABEC PO SCH (07:23)
[2019-08-15] MEDS: MAGNESIUM OXIDE 400 MG TAB PO SCH (07:23)
[2019-08-15 07:27] VITALS: BP 172/108
[2019-08-15 07:31] VITALS: BP 172/108
[2019-08-15 11:00] VITALS: BP 160/104
--- NOTE | 2019-08-15 12:33 | NUR ---
Pulmonary Critical Care Medicine DATE 08/15/2019 SUBJECTIVE: RA fio2 CPAP used cardiology modified medications stable leg edema REVIEW OF SYSTEMS: NO seizures, no rash PHYSICAL EXAMINATION: VITAL SIGNS: vital signs noted, reviewed per the chart record. GENERAL: calm, NAD HEENT: Normocephalic and atraumatic. NECK: Supple. Throat midline. LUNGS: Bilateral air entry, decreased at bases CARDIOVASCULAR: S1 and S2. No murmurs, rubs, or gallops. ABDOMEN: Soft and nontender. EXTREMITIES: No clubbing. No cyanosis. 2+ edema. INTEGUMENT: leg erythema, no purpura. LABORATORY DATA: no new updates IMPRESSION AND PLAN: 1. Pulmonary edema, cardiac. Slowly improving 2. Congestive heart failure, acute CHF <20% LVEF 3. Enlarged pulmonary artery caliber on chest radiography, possible pulmonary hypertension. 4. Chronic obstructive sleep apnea 5. Obesity. 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 7. Hypertension. 8. Critical hypokalemia. 9. Mild polycythemia, resolved. continue medications per cardiology CXR repeat intermittently until clear recheck lytes in AM continue CPAP for HATTIE Thank you very much, Dr. Bauman, for this consult. Please call for questions.
--- NOTE | 2019-08-15 12:41 | NUR ---
Nutrition Screen Note RD Recommendation for Physician: - Continue current diet Plan of Care: RD following, monitoring for tolerance and adequacy - diet education provided 08/14 Nutrition reason for involvement: follow up Primary Diagnose(s): atrial fibrillation PMH: HTN, Guillain-Sevier syndrome, cranial nerve palsy Ht: 73 in Wt: 303.56 lb 08/07, 282 lb 08/14 BMI: 40 kg/m2 IBW: [address] Assessment: 08/14: Follow up. Pt feeling much better today. Eating well, 100% of meals and no GI distress. Pt with significant fluid loss, currently on lasix. Pt receptive to diet education at time of visit- discussed high Na foods to avoid, tracking Na intake in apps, and foods to emphasize. Pt provided with diet education materials as well. All questions and concerns addressed at time of visit. Labs and meds reviewed. Chart reviewed. Pt pending discharge today. (08/07) 54 YOM admitted for a-fib, seen today per MST screen. Pt reports good appetite and po intake. Pt denies wt loss, reports "dry weight" of 275#- weight gain likely due to fluid shifts as pt has +3 BLE edema currently. Pt denies any N/V/C/D. Pt reports that he does not cook with salt, however that he dines out and eats foods made/prepackaged with higher sodium content. Pt diaphoretic and feeling very dizzy at time of visit, diet education not appropriate at this time. Chart reviewed. Labs and meds reviewed, K replaced. Will continue to monitor. Current Diet: Cardiac Malnutrition Evaluation (08/08/19) The patient does not meet criteria for a specified degree of malnutrition at this time. Will re-evaluate at follow-up as appropriate. Energy intake: does not meet criteria, good intake reported Weight loss: none reported, UBW/"dry wt" of 275# Fat loss: none, chest well developed Muscle loss: none, shoulder round Supporting Evidence: Fluid accumulation: +3 BLE edema Functional Status: not assessed Diet Education Needs Assessment: Diet education indicated, pt receptive to education 08/14. Learner(s): pt Barriers: none Cultural/Language Modifications: none Readiness: ready Method: Topics: Understanding/Compliance: Diet tolerance: tolerating po Nutrition Care Level: Low Signed: Ronda Ruiz RD, LD, [facility]
[2019-08-15] MEDS ORDERED: CARVEDILOL 12.5 MG TAB PO ONE (12:55)
[2019-08-15 13:45] VITALS: BP 163/96
--- NOTE | 2019-08-15 17:21 | Progress Note ---
DATE: 08/15/2019 Cardiology Progress Note SUBJECTIVE: The patient feeling better. Denies any chest pain or shortness of breath. OBJECTIVE: VITAL SIGNS: Temperature is 98, heart rate is 97, respirations are 16, blood pressure is 163/96, and ox saturation 98% on room air. GENERAL: Well appearing, well built, in no apparent distress. HEAD: Normocephalic, atraumatic. CARDIOVASCULAR: Irregularly regular, intermittently tachycardic. No murmurs. LUNGS: Diminished breath sounds at bases. ABDOMEN: Soft, nontender, nondistended. EXTREMITIES: No clubbing, cyanosis, or edema. VASCULAR: 2+ pulses. SKIN: Warm, dry, and intact. NEUROLOGIC: No focal deficits noted. LABORATORY DATA: Reviewed. Cardiac catheterization showed no significant coronary artery disease. IMPRESSION: 1. Nonischemic cardiomyopathy. 2. Systolic congestive heart failure. 3. Atrial fibrillation. 4. Hypertension. 5. Obesity. RECOMMENDATIONS: The patient will need to be discharged home on a LifeVest. Continue to titrate antihypertensives and optimal medical therapy. Arie Becerril DO BM/MODL /[id number]
--- NOTE | 2019-08-16 06:13 | Discharge Summary ---
DISCHARGE DIAGNOSES: 1. New onset atrial fibrillation with rapid ventricular response. 2. Acute systolic heart failure with EF of 20%. 3. Cardiomyopathy. 4. Hypertension. 5. Cellulitis of the bilateral lower extremities. DISCHARGE MEDICATIONS: Please see the discharge med list. FOLLOWUP: In 1 to 2 weeks with me as well as with Cardiology. HISTORY OF PRESENT ILLNESS AND HOSPITAL COURSE: The patient is a gentleman, who presented to my office with some dyspnea on exertion, orthopnea, where he was noticed on exam to have AFib with RVR. So, he was admitted, was found to be in AFib with a ventricular rate of 140s to 150s. He was placed in the ICU, placed on IV Cardizem drip. He is also has history of significant hypertension. He was seen by Cardiology, where after multiple medication attempts, his rate control was doing much better, less than 100, but he still remained in AFib. Echo showed an EF of about 20%, so he had a cardiac cath done that showed nonobstructive disease, so most consistent with cardiomyopathy. He was treated with a LifeVest. At the time of discharge, he had diuresed very well. He is able to breathe well with no orthopnea. His cellulitis improved tremendously. He still has peripheral edema. At the time of discharge, he was able to be discharged home with medical management. He is to follow up in 1 to 2 weeks with me as well as Cardiology. Please see hospital chart for full details. MD MIRANDA Vicente/ROXI /[id number]
== END 2019-08-15 13:45 | disposition home or self-care (01) | DRG 286 ==
LOC: ER 08:29 → ERHOLD 09:15 → MED/SURG2 12:58 → ICU 14:30
PROVIDERS: ADMIT Internal Medicine; ATTEND Internal Medicine
PROC: 4A023N7 Measurement of Cardiac Sampling and Pressure, Left Heart, Percutaneous Approach (ICD-10-PCS; principal; 2019-08-14)
PROC: B2011ZZ Plain Radiography of Multiple Coronary Arteries using Low Osmolar Contrast (ICD-10-PCS; 2019-08-14)
PROC: B2051ZZ Plain Radiography of Left Heart using Low Osmolar Contrast (ICD-10-PCS; 2019-08-14)
DX: I48.91 Unspecified atrial fibrillation (principal); I50.21 Acute systolic (congestive) heart failure; I13.0 Hypertensive heart and chronic kidney disease with heart failure and stage 1 through stage 4 chronic kidney disease, or unspecified chronic kidney disease; L03.116 Cellulitis of left lower limb; L03.115 Cellulitis of right lower limb; G61.0 Guillain-Barre syndrome; I16.0 Hypertensive urgency; I42.9 Cardiomyopathy, unspecified; D75.1 Secondary polycythemia; E87.6 Hypokalemia; I27.20 Pulmonary hypertension, unspecified; G47.33 Obstructive sleep apnea (adult) (pediatric); E66.9 Obesity, unspecified; Z68.37 Body mass index [BMI] 37.0-37.9, adult; J44.9 Chronic obstructive pulmonary disease, unspecified; N18.3 Chronic kidney disease, stage 3 (moderate)
CPT/HCPCS: 36415; 71045; 80048; 80053; 82550; 82553; 82948; 83735; 84100; 84132; 84436; 84443; 84479; 84484; 85025; 85610; 85730; 93005; 93306; 93458; 94660; 99152; 99285; C1887; J0360; J0692; J1160; J1170; J1650; J1940; J2001; J2250; J2405; J3010; J3370; J3475; J3480; J7030; J7050; Q9967